=== PATIENT | female | born 1995 | race Caucasian/White ===

== ENCOUNTER 2019-04-07 11:56 | Emergency (ER) | payer SELFPAY ==
--- NOTE | 2019-04-07 13:02 | ED ---
Lower Extremity - HPI Summary HPI Summary: Patient is a 23-year-old female who presents emergency department for left leg pain and swelling 2-3 days. Patient states she recently an implanon placed. Pt. states she has had a few recent very long car trips driving to [place] and [place]. Pt. states she started to notice pain to her left posterior a few days ago and feels her left leg is swollen compared to the right. Pt. denies any falls or injuries. Pt. states she was recently checked out in an ER for CP and SOB and dx with anxiety. No other past medical hx. Sx are mild in severity. no current modifying factors. - History of Current Complaint Chief Complaint: EDExtremityLower Stated Complaint: NEXPLANON JUST IMPLANTED/LEFT LEG SWELLING PER PT Time Seen by Provider: 04/07/19 12:52 Hx Obtained From: Patient Pain Intensity: 0 - Allergies/Home Medications Allergies/Adverse Reactions: Allergies Allergy/AdvReac Type Severity Reaction Status Date / Time No Known Allergies Allergy Verified 04/07/19 12:06 Home Medications: Home Medications NK [No Home Medications Reported] 04/07/19 [History Confirmed 04/07/19] PMH/Surg Hx/FS Hx/Imm Hx Previously Healthy: Yes Infectious Disease History: No Infectious Disease History: Denies: Traveled Outside the [place] in Last 30 Days - Family History Known Family History: Positive: Non-Contributory - Social History Occupation: Student Lives: With Family Review of Systems Constitutional: Negative Negative: Fever, Chills Cardiovascular: Negative Respiratory: Negative Positive: Other - left leg pain and swelling . Skin: Negative Neurological: Negative Negative: Weakness, Paresthesia, Numbness All Other Systems Reviewed And Are Negative: Yes Physical Exam Triage Information Reviewed: Yes Vital Signs On Initial Exam: Initial Vitals Temp Pulse Resp BP Pulse Ox 99.0 F 97 14 132/85 99 04/07/19 12:00 04/07/19 12:00 04/07/19 12:00 04/07/19 12:00 04/07/19 12:00 Vital Signs Reviewed: Yes Appearance: Positive: Well-Appearing - Pt. sitting in chair in NAD. Mother present. Skin: Positive: Warm, Dry Head/Face: Positive: Normal Head/Face Inspection Eyes: Positive: Normal, EOMI Neck: Positive: Supple Musculoskeletal: Positive: Other - Minimal edema noted to dorsum of left foot. Good pedal pulse. No palpable calf tenderness or cords. No erythema or wounds. Neurological: Positive: Normal, CN Intact II-III Psychiatric: Positive: Affect/Mood Appropriate Diagnostics - Vital Signs Vital Signs Temp Pulse Resp BP Pulse Ox 04/07/19 12:00 99.0 F 97 14 132/85 99 - Laboratory Lab Statement: Any lab studies that have been ordered have been reviewed, and results considered in the medical decision making process. Lower Extremity Course/Dx - Course Course Of Treatment: Patient presenting with concerns of swelling to her left leg, pain and recent long travels. Patient also notes she's been having side effects from implanon and plans to have it removed. Venous duplex negative for acute findings. Will have pt. f.u with [facility] if sxs persist. To ice and elevate. To return to ER if sxs change or worsen. - Diagnoses Differential Diagnosis/HQI/PQRI: Positive: Contusion, DVT, Sprain, Strain, Tendonitis Provider Diagnoses: Leg pain Discharge - Sign-Out/Discharge Documenting (check all that apply): Patient Departure Patient Received Moderate/Deep Sedation with Procedure: No - Discharge Plan Condition: Good Disposition: HOME Patient Education Materials: Leg Pain (ED) Referrals: [facility] [Outside] Additional Instructions: Follow up with the [facility] for further evaluation Elevate leg and avoid standing for long periods of time Tylenol or Motrin for pain as directed Cool compresses Return to ER if symptoms change or worsen - Billing Disposition and Condition Condition: GOOD Disposition: Home
[2019-04-07 15:31] VITALS: BP 119/64
== END 2019-04-07 15:30 | disposition home or self-care (01) ==
LOC: ED 11:56
DX: M79.605 Pain in left leg (principal); R60.0 Localized edema
CPT/HCPCS: 99282